=== PATIENT | female | born 2000 | race Caucasian/White ===

== ENCOUNTER → 2019-06-14 | Emergency (ER) | payer OTHER ==
[~2019-06-14] VITALS: Ht 152.4 cm; Wt 40.6 kg
[2019-06-14 19:33] VITALS: BP 118/72; PULSE 73; RESP 18; Ht 152.4 cm; Wt 40.6 kg
--- NOTE | 2019-06-14 22:14 | ERD ---
ER Documentation Chief Complaint Chief Complaint VAG BLEED X'S 1 DAY; 7 WEEKS PG HPI 18-year-old female who is , last menstrual cycle of 05/07/2019, presenting to the emergency department reporting intermittent mild vaginal spotting which began this morning. She has not required pads. She had a normal ultrasound which showed an intrauterine on 06/10/2019. She denies any dysuria, suprapubic pain, cramping, nausea, vomiting, diarrhea, or other symptoms at this time. Current symptoms are rated mild in severity. ROS All systems reviewed and are negative except as per history of present illness. Allergies Allergies: Coded Allergies: No Known Allergy (Unverified , 06/14/19) PMhx/Soc Medical and Surgical Hx: pt denies Medical Hx, pt denies Surgical Hx Hx Alcohol Use: No Hx Substance Use: No Hx Tobacco Use: No Smoking Status: Never smoker FmHx Family History: No diabetes Physical Exam Vitals Vital Signs Date Temp Pulse Resp B/P (MAP) Pulse Ox O2 O2 Flow FiO2 Time Delivery Rate 06/14/19 98.5 73 18 118/72 99 19:33 (87) Physical Exam Const: No acute distress Head: Atraumatic Eyes: Normal Conjunctiva ENT: Normal External Ears, Nose and Mouth. Neck: Full range of motion. No meningismus. Resp: Clear to auscultation bilaterally Cardio: Regular rate and rhythm, no murmurs Abd: Soft, non tender, non distended. Normal bowel sounds. No rebound tenderness or guarding. No McBurney's point tenderness. No suprapubic tenderness on palpation.. Skin: No petechiae or rashes Back: No midline or flank tenderness Ext: No cyanosis, or edema Neur: Awake and alert Psych: Normal Mood and Affect Result Diagram: 06/14/191957 Results 24 hrs Laboratory Tests Test 06/14/19 19:58 White Blood Count 10.6 10^3/ul Red Blood Count 4.22 10^6/ul Hemoglobin 12.6 g/dl Hematocrit 37.1 % Mean Corpuscular Volume 87.9 fl Mean Corpuscular Hemoglobin 29.9 pg Mean Corpuscular Hemoglobin Concent 34.0 g/dl Red Cell Distribution Width 12.6 % Platelet Count 168 10^3/UL Mean Platelet Volume 13.4 fl Immature Granulocytes % 0.200 % Neutrophils % 66.3 % Lymphocytes % 25.1 % Monocytes % 7.2 % Eosinophils % 0.6 % Basophils % 0.6 % Nucleated Red Blood Cells % 0.0 /100WBC Immature Granulocytes # 0.020 10^3/ul Neutrophils # 7.1 10^3/ul Lymphocytes # 2.7 10^3/ul Monocytes # 0.8 10^3/ul Eosinophils # 0.1 10^3/ul Basophils # 0.1 10^3/ul Nucleated Red Blood Cells # 0.0 10^3/ul Urine Color YELLOW Urine Clarity CLEAR Urine pH 6.0 Urine Specific Artie 1.024 Urine Ketones 1+ mg/dL Urine Nitrite NEGATIVE mg/dL Urine Bilirubin NEGATIVE mg/dL Urine Urobilinogen 1+ mg/dL Urine Leukocyte Esterase NEGATIVE Alexandra/ul Urine Microscopic RBC 90 /HPF Urine Microscopic WBC 1 /HPF Urine Mucus MANY /HPF Urine Hemoglobin 3+ mg/dL Urine Glucose NEGATIVE mg/dL Urine Total Protein NEGATIVE mg/dl Beta HCG, Quantitative 59443.0 mIU/ml [place] [id number] Radiology Main Line: [phone] DIAGNOSTIC IMAGING REPORT Patient: MARGARITA SANDHU : 2000 Age: 18 Sex: F MR #: [id number] DOS: 06/14/19 1950 Ordering MD: FELA SAWANT PA-C Location: [facility] Room/Bed: PROCEDURE: US OB. CLINICAL INDICATION: Vaginal bleeding in early . TECHNIQUE: Transabdominal views of the pelvis are available for review. COMPARISON: No prior studies are available for comparison. FINDINGS: A single intrauterine gestational sac is evident. A yolk sac is evident. [place]-rump length: 0.4 cm Gestational sac diameter: 1.9 cm heart rate: 106 beats per minute. Ultrasound estimated gestational age: 6 weeks 3 days No ovarian or adnexal mass lesion is seen. There is no free fluid. . IMPRESSION: 1. Single live intrauterine with an estimated gestational age of 6 weeks 3 days. This yields an estimated due date of 02/04/2020, 1 week advanced with respect to menstrual dates. RPTAT:AAJJ Physician Holden Date Time Electronically viewed and signed by Physician Holden on 06/14/2019 21:13 GW/ CC: FELA SAWANT Juliane COLEMAN [id number] Procedures/MDM 18-year-old female presenting to the emergency department complaining of intermittent vaginal spotting which began this morning. Patient's physical examination was unremarkable. She had no tenderness to the abdomen or suprapubic region. Obstetrics ultrasound was obtained which revealed live intrauterine with heart tones present. No evidence to suggest ectopic , tubo-ovarian abscess, PID, ovarian torsion, failed , or other emergent conditions. 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 Patient was advised to return here immediately for any new or worsening or concerning symptoms. The patient was in agreement with the diagnosis, plan, need for follow-up, return precautions. Departure Diagnosis: Primary Impression: Vaginal bleeding in patient at less than 20 weeks ges... Condition: Fair Patient Instructions: Bleeding During Early Referrals: [facility] (PCP) [facility] [employer] [facility] [facility] [id number] [facility] [address] [place], [place] [phone] OFFICE FAX DR[address]ABUSLEME [facility] [address] [place] [place] [phone] [facility] [address] [place] [phone] [facility] [id number] [facility] [address] [phone] SARAH ROL[address] [address] [place], [place] [phone] [facility] [address] [place] [phone] [facility] [id number] [address] ELAM, MONA [address] [facility] [id number] [address] HERNANDEZ, SANT[place] [address] [facility]. [address], [facility] [address] [address] CAVAZOS, [facility] [address] [place] [address] Additional Instructions: SPECIALIST: YOU HAVE A MEDICAL CONDITION WHICH REQUIRES YOU TO SEE A SPECIALIST WITHIN THE NEXT 1-2 DAYS. PLEASE FOLLOW UP WITH YOUR PRIMARY PHYSICIAN FOR REFFERAL.IF YOU DO NOT HAVE A PRIMARY CARE PHYSICIAN AND/OR YOU CAN NOT AFFORD TO SEE A PHYSICIAN THE FOLLOWING RESOURCES HAVE BEEN SUPPLIED TO YOU. IT IS YOUR RESPONSIBILITY TO BE SEEN BY THE SPECIALIST: FELA DEL ANGEL PA-C Jun 14, 2019 22:14
== END | disposition home or self-care (01) ==
LOC: FTE 19:29
DX: O20.9 Hemorrhage in early pregnancy, unspecified (principal); Z3A.01 Less than 8 weeks gestation of pregnancy
CPT/HCPCS: 36415; 76801; 81001; 84702; 85025; 86900; 86901; Z7502

== ENCOUNTER → 2019-08-08 | Emergency (ER) | payer OTHER ==
[~2019-08-08] VITALS: Ht 152.4 cm; Wt 42.0 kg
[~2019-08-08] MED LIST: ACET500C5 PO; ACETAMINOPHEN 325 MG TAB PO ONE; ONDA4TAB14 PO
[2019-08-08 08:41] VITALS: BP 104/67; PULSE 72; RESP 16; Ht 152.4 cm; Wt 42.0 kg
== END | disposition home or self-care (01) ==
LOC: FTE 08:38
DX: O99.352 Diseases of the nervous system complicating pregnancy, second trimester (principal); G44.201 Tension-type headache, unspecified, intractable; Z3A.00 Weeks of gestation of pregnancy not specified
CPT/HCPCS: 81001; Z7610; 99283

== ENCOUNTER 2019-09-24 11:45 | Outpatient (CLI) | payer OTHER ==
[~2019-09-24] VITALS: Ht 152.4 cm; Wt 42.7 kg
[~2019-09-24 11:45] MED LIST changes: -ACETAMINOPHEN 325 MG TAB PO ONE; +PNV11TAB PO
[2019-09-24 12:19] VITALS: Ht 152.4 cm; Wt 42.7 kg
[2019-09-24 12:20] VITALS: BP 108/66; PULSE 82; RESP 19
== END 2019-09-24 18:30 | disposition home or self-care (01) ==
LOC: OBT 11:45 → L-D 11:46 → OBT 18:30
PROVIDERS: ATTEND Obstetrics & Gynecology
DX: O26.892 Other specified pregnancy related conditions, second trimester (principal); Z3A.21 21 weeks gestation of pregnancy; R10.32 Left lower quadrant pain
CPT/HCPCS: 76700; 76815; 76817; 80053; 81001; 85025; 87086; Z7500; G0463